=== PATIENT | male | born 1970 | race Caucasian/White ===

== ENCOUNTER 2019-08-27 07:55 | Day surgery (SDC) | payer OTHER ==
[~2019-08-27] VITALS: Ht 185.4 cm; Wt 82.7 kg
[2019-08-27 08:15] VITALS: BP 120/76
[2019-08-27] MEDS ORDERED: SODIUM CHLORIDE 0.9% 1,000 ML IV SCH ×2 (08:22→11:26)
[2019-08-27] MEDS ORDERED: SIMV10TA18 PO (08:26)
[2019-08-27] MEDS ORDERED: ASPIRIN 325 MG TABLET EC PO ONE (08:30)
[2019-08-27 08:47] LABS: ANION GAP 5 mmol/L (5-15); CALCIUM 8.3 mg/dL (8.5-10.1); CHLORIDE 107 mmol/L (98-107); CREATININE 0.95 mg/dL (0.7-1.3)
== END 2019-08-27 13:20 | disposition home or self-care (01) ==
LOC: CACL 07:55 → EDSTATUS 09-02 10:30
PROVIDERS: ATTEND Internal Medicine Cardiovascular Disease
DX: Z01.810 Encounter for preprocedural cardiovascular examination (principal); I35.1 Nonrheumatic aortic (valve) insufficiency; I71.2 Thoracic aortic aneurysm, without rupture; I48.0 Paroxysmal atrial fibrillation; E78.5 Hyperlipidemia, unspecified; Z79.899 Other long term (current) drug therapy
CPT/HCPCS: 36415; 80048; 93458; 99156; C1769; C1894; Q9967

== ENCOUNTER → 2019-08-28 | Outpatient (CLI) | payer OTHER ==
[~2019-08-28] MED LIST: ASPIRIN 325 MG TABLET EC ONE; OMNIPAQUE 350 MG/ML, 100ML BOTTLE ONE; SIMV10TA18 PO
== END | disposition home or self-care (01) ==
LOC: CFH 10:45
PROVIDERS: ATTEND Thoracic Surgery (Cardiothoracic Vascular Surgery)
DX: I71.2 Thoracic aortic aneurysm, without rupture (principal)
CPT/HCPCS: 71275; Q9967

== ENCOUNTER 2019-09-03 04:27 | Inpatient (IN) | payer OTHER ==
[2019-09-02 13:01] LABS: MICROSCOPIC NOT IND
[2019-09-02 13:06] LABS: BASOPHILS # (AUTO) 0.03 x10^3/uL (0-0.1); BASOPHILS % (AUTO) 0 % (0-1); EOSINOPHILS # (AUTO) 0.05 x10^3/uL (0-0.4); EOSINOPHILS % (AUTO) 1 % (1-7); LYMPHOCYTES # (AUTO) 1.16 x10^3/uL (1-3.4); LYMPHOCYTES % (AUTO) 16 % (22-44); MD NO; MEAN CORPUSCULAR HEMOGLOBIN 31.3 pg (27.5-34.5); MEAN CORPUSCULAR HGB CONC 33.7 g/dL (33.2-36.2); MEAN CORPUSCULAR VOLUME 92.8 fL (81-97); MEAN PLATELET VOLUME 6.9 fL (7.4-10.4); MONOCYTES # (AUTO) 0.54 x10^3/uL (0.2-0.8); MONOCYTES % (AUTO) 8 % (2-9); NEUTROPHILS # (AUTO) 5.42 x10^3/uL (1.8-6.8); NEUTROPHILS % (AUTO) 75 % (42-75); PLATELET COUNT 281 x10^3/uL (130-400); RED BLOOD COUNT 4.85 x10^6/uL (4.38-5.82)
[2019-09-02 13:16] LABS: ALANINE AMINOTRANSFERASE 32 U/L (12-78); ALBUMIN 3.9 g/dL (3.4-5.0); ANION GAP 3 mmol/L (5-15); CALCIUM 8.8 mg/dL (8.5-10.1); CHLORIDE 104 mmol/L (98-107); CREATININE 1.01 mg/dL (0.7-1.3)
[2019-09-02 13:18] LABS: ALKALINE PHOSPHATASE 44 U/L (45-117); BILIRUBIN,TOTAL 0.4 mg/dL (0.2-1.0); TOTAL PROTEIN 7.7 g/dL (6.4-8.2)
[2019-09-02 13:23] LABS: INTERNATIONAL NORMALIZED RATIO 0.99 (0.93-1.1); PROTHROMBIN TIME 10.5 Seconds (9.6-11.5)
[~2019-09-03] VITALS: Ht 185.4 cm; Wt 89.8 kg
[~2019-09-03 04:27] MED LIST changes: -ASPIRIN 325 MG TABLET EC ONE; -OMNIPAQUE 350 MG/ML, 100ML BOTTLE ONE
[2019-09-03 04:50] VITALS: BP_SYST 127; BP_SYST 143; BP_DIAS 74; BP_DIAS 78
[2019-09-03] MEDS ORDERED: CHLORHEXIDINE 15 ML UDC MM SCH (05:00)
[2019-09-03] MEDS ORDERED: INSULIN LISPRO 100 UNITS/ML, PEN SQ-INSULIN SCH (05:00)
[2019-09-03] MEDS ORDERED: DO NOT GIVE MC SCH (05:00)
[2019-09-03] MEDS: MUPIROCIN OINT 2%, 22GM TP SCH ×2 (05:07→21:00)
[2019-09-03] MEDS ORDERED: ALBUMIN HUMAN 5% 500 ML IV PRN (07:30)
[2019-09-03] MEDS ORDERED: POTASSIUM CHLORIDE 80 MEQ, SODIUM BICARBONATE 8.4% 10 MEQ, MAGNESIUM SULFATE 0.5 GM, LI... IV PRN (07:30)
[2019-09-03] MEDS ORDERED: EPINEPHRINE 5 MG in SODIUM CHLORIDE 0.9% 245 ML IV PRN ×2 (07:30→10:00)
[2019-09-03] MEDS ORDERED: MANNITOL PMX 20% 500 ML IVPB PRN (07:30)
[2019-09-03] MEDS ORDERED: DEXMEDETOMIDINE 200 MCG in SODIUM CHLORIDE 0.9% 48 ML IV PRN ×2 (07:30→09:54)
[2019-09-03] MEDS ORDERED: REGULAR INSULIN 100 UNITS in SODIUM CHLORIDE 0.9% 99 ML IV PRN ×2 (07:30→09:54)
[2019-09-03] MEDS ORDERED: CEFUROXIME 1.5 GM in SODIUM CHLORIDE 0.9% 50 ML IVPB PRN (07:30)
[2019-09-03] MEDS ORDERED: PHENYLEPHRINE 50 MG in SODIUM CHLORIDE 0.9% 245 ML IV PRN ×2 (07:30→09:54)
[2019-09-03] MEDS ORDERED: VANCOMYCIN 1,300 MG in SODIUM CHLORIDE 0.9% 250 ML IV PRN (07:30)
[2019-09-03] MEDS ORDERED: FENTANYL PF 250 MCG/5ML ONE ×4 (07:50→07:51)
[2019-09-03] MEDS ORDERED: MIDAZOLAM 10MG/2 ML ONE (07:50)
[2019-09-03] MEDS ORDERED: PROPOFOL 10 MG/ML, 20ML ONE (08:25)
[2019-09-03] MEDS: DOCUSATE 100 MG CAPSULE PO SCH ×2 (09:00→20:20)
[2019-09-03] MEDS ORDERED: DOBUTAMINE 250 MG in SODIUM CHLORIDE 0.9% 230 ML IV PRN (09:54)
[2019-09-03] MEDS ORDERED: NITROGLYCERIN/D5W PMX 250 ML IV PRN (09:54)
[2019-09-03] MEDS ORDERED: SODIUM CHLORIDE 0.9% 1,000 ML IV PRN (09:54)
[2019-09-03] MEDS ORDERED: VASOPRESSIN 20 UNIT in SODIUM CHLORIDE 0.9% 99 ML IV PRN (09:54)
[2019-09-03] MEDS ORDERED: ACETAMINOPHEN 325 MG TABLET PO PRN (10:00)
[2019-09-03] MEDS ORDERED: DEXTROSE 50%, 50ML SYRINGE IVPush PRN (10:00)
[2019-09-03] MEDS ORDERED: DEXTROSE 4 GM TAB.CHEW PO PRN (10:00)
[2019-09-03] MEDS ORDERED: ONDANSETRON 2MG/ML, 2ML IVPush PRN (10:00)
[2019-09-03] MEDS ORDERED: BISACODYL 10 MG SUPP PR PRN (10:00)
[2019-09-03] MEDS ORDERED: ACETAMINOPHEN 650 MG SUPP PR PRN (10:00)
[2019-09-03] MEDS ORDERED: HYDROcodone/APAP 10/325 MG TABLET PO PRN (10:00)
[2019-09-03] MEDS ORDERED: BISACODYL 5 MG EC TABLET PO PRN (10:00)
[2019-09-03] MEDS ORDERED: GLUCAGON 1 MG IM PRN (10:00)
[2019-09-03] MEDS ORDERED: PROCHLORPERAZINE 5 MG/ML, 2ML IVPush PRN (10:00)
[2019-09-03] MEDS ORDERED: MIDAZOLAM 1 MG/ML, 5ML IVPush PRN (10:00)
[2019-09-03] MEDS ORDERED: SODIUM BICARB 8.4%, 50ML SYRINGE IV PRN (10:00)
[2019-09-03] MEDS ORDERED: INSULIN REGULAR 100 UNITS/ML, 3ML VIAL IVPush PRN (10:00)
[2019-09-03] MEDS: INSULIN LISPRO 100 UNITS/ML, PEN SQ-INSULIN SCH ×4 (11:00→22:02)
[2019-09-03] MEDS ORDERED: ROCURONIUM 10MG/ML,5ML ONE ×2 (11:02)
[2019-09-03] MEDS ORDERED: AMINOCAPROIC ACID 250 MG/ML, 20ML ONE (11:02)
[2019-09-03] MEDS ORDERED: PROTAMINE SULFATE 10 MG/ML, 25ML ONE ×2 (11:02)
[2019-09-03] MEDS ORDERED: CALCIUM CHLORIDE 10%, 10ML SYR ONE (11:47)
[2019-09-03] MEDS: KSCALE TO 4.5 IV SCH ×2 (12:30→18:30)
[2019-09-03 12:33] LABS: GLUCOSE BY BLOOD GAS ANALYZER 161 mg/dL (70-110); HEMOGLOBIN BY BLOOD GAS ANALYZ 13.3 g/dL (14.0-18.0); POTASSIUM BY BLOOD GAS ANALYZR 4.2 mmol/L (3.6-5.5)
[2019-09-03] MEDS ORDERED: LIDOCAINE-MPF 2% ,5ML ONE (12:41)
[2019-09-03] MEDS ORDERED: SODIUM BICARBONATE 1 MEQ/ML, 50ML VIAL ONE (12:41)
[2019-09-03] MEDS ORDERED: methylPREDNISolone SOD SUCC 125 MG/2 ML ONE (12:41)
[2019-09-03] MEDS ORDERED: ALBUMIN HUMAN 25% 50 ML ONE (12:42)
[2019-09-03] MEDS ORDERED: HEPARIN 1,000 UNITS/ML, 30ML ONE (12:42)
[2019-09-03 12:44] LABS: INTERNATIONAL NORMALIZED RATIO 1.18 (0.93-1.1); PROTHROMBIN TIME 12.5 Seconds (9.6-11.5)
[2019-09-03] MEDS ORDERED: MIDAZOLAM 1 MG/ML, 2ML ONE (12:59)
[2019-09-03] MEDS: FENTANYL PF 100 MCG/2ML IVPush PRN ×2 (13:16→19:45)
[2019-09-03] MEDS: LACTATED RINGERS 1,000 ML IV PRN ×2 (13:31→13:41)
[2019-09-03] MEDS: SODIUM CHLORIDE FLUSH 10ML SYR IVF SCH ×3 (13:50→20:17)
[2019-09-03] MEDS: MAGNESIUM SULFATE 1 GM in SODIUM CHLORIDE 0.9% 100 ML IVPB SCH (14:08)
[2019-09-03] MEDS: OXYcodone IR 5MG TABLET PO PRN ×4 (16:23→23:57)
[2019-09-03] MEDS: CEFUROXIME 1.5 GM in SODIUM CHLORIDE 0.9% 50 ML IVPB SCH (18:32)
[2019-09-03] MEDS: VANCOMYCIN 1,300 MG in SODIUM CHLORIDE 0.9% 250 ML IVPB SCH (19:27)
[2019-09-03] MEDS: MUPIROCIN OINT 2%, 22GM NAS SCH (20:18)
[2019-09-04] MEDS: OXYcodone IR 5MG TABLET PO PRN ×3 (00:18→06:40)
[2019-09-04] MEDS: KSCALE TO 4.5 IV SCH ×2 (00:30→05:28)
[2019-09-04 04:00] VITALS: BP 122/62
[2019-09-04] MEDS: INSULIN LISPRO 100 UNITS/ML, PEN SQ-INSULIN SCH ×5 (04:06→20:12)
[2019-09-04 04:07] LABS: O2 FLOW ROOM AIR L/min
[2019-09-04 04:22] LABS: ALBUMIN 3.1 g/dL (3.4-5.0); ANION GAP 5 mmol/L (5-15); CALCIUM 8.1 mg/dL (8.5-10.1); CHLORIDE 108 mmol/L (98-107); CREATININE 0.81 mg/dL (0.7-1.3); INTERNATIONAL NORMALIZED RATIO 1.05 (0.93-1.1); PROTHROMBIN TIME 11.1 Seconds (9.6-11.5)
[2019-09-04 04:27] LABS: BASOPHILS # (AUTO) 0.02 x10^3/uL (0-0.1); BASOPHILS % (AUTO) 0 % (0-1); EOSINOPHILS # (AUTO) 0.01 x10^3/uL (0-0.4); EOSINOPHILS % (AUTO) 0 % (1-7); LYMPHOCYTES # (AUTO) 0.43 x10^3/uL (1-3.4); LYMPHOCYTES % (AUTO) 3 % (22-44); MD NO; MEAN CORPUSCULAR HEMOGLOBIN 30.9 pg (27.5-34.5); MEAN CORPUSCULAR HGB CONC 33.7 g/dL (33.2-36.2); MEAN CORPUSCULAR VOLUME 91.7 fL (81-97); MEAN PLATELET VOLUME 7.4 fL (7.4-10.4); MONOCYTES # (AUTO) 1.04 x10^3/uL (0.2-0.8); MONOCYTES % (AUTO) 7 % (2-9); NEUTROPHILS # (AUTO) 12.65 x10^3/uL (1.8-6.8); NEUTROPHILS % (AUTO) 89 % (42-75); PLATELET COUNT 241 x10^3/uL (130-400); RED BLOOD COUNT 4.27 x10^6/uL (4.38-5.82); RED CELL DISTRIBUTION WIDTH 13.8 % (9.4-14.8)
[2019-09-04] MEDS: CEFUROXIME 1.5 GM in SODIUM CHLORIDE 0.9% 50 ML IVPB SCH (06:45)
[2019-09-04] MEDS: METOPROLOL TARTRATE 25 MG TAB PO SCH ×2 (07:30→19:36)
[2019-09-04] MEDS: VANCOMYCIN 1,300 MG in SODIUM CHLORIDE 0.9% 250 ML IVPB SCH (08:30)
[2019-09-04] MEDS ORDERED: KETOROLAC 30 MG/1 ML ONE (08:36)
[2019-09-04] MEDS: FUROSEMIDE 20 MG/2 ML IV SCH (08:45)
[2019-09-04] MEDS: POTASSIUM CHLORIDE 10 MEQ TABLET.ER PO SCH (08:45)
[2019-09-04] MEDS: MUPIROCIN OINT 2%, 22GM NAS SCH ×2 (08:45→20:14)
[2019-09-04] MEDS: ASPIRIN 81 MG TABLET EC PO SCH (08:46)
[2019-09-04] MEDS: DOCUSATE 100 MG CAPSULE PO SCH ×2 (08:46→20:13)
[2019-09-04] MEDS: SODIUM CHLORIDE FLUSH 10ML SYR IVF SCH ×4 (08:47→20:14)
[2019-09-04] MEDS: KETOROLAC 30 MG/1 ML IVPush SCH ×3 (08:47→21:00)
[2019-09-04] MEDS: HYDROcodone/APAP 5/325 TABLET PO PRN ×3 (09:47→19:58)
[2019-09-04] MEDS: MAGNESIUM SULFATE 1 GM in SODIUM CHLORIDE 0.9% 100 ML IVPB SCH (11:54)
[2019-09-04] MEDS: CHLORHEXIDINE 15 ML UDC MM SCH (20:13)
[2019-09-05] MEDS: KETOROLAC 30 MG/1 ML IVPush SCH ×4 (01:37→20:22)
[2019-09-05] MEDS: HYDROcodone/APAP 5/325 TABLET PO PRN (04:45)
[2019-09-05 05:00] LABS: BASOPHILS # (AUTO) 0.02 x10^3/uL (0-0.1); BASOPHILS % (AUTO) 0 % (0-1); EOSINOPHILS % (AUTO) 0 % (1-7); LYMPHOCYTES # (AUTO) 0.98 x10^3/uL (1-3.4); LYMPHOCYTES % (AUTO) 8 % (22-44); MD NO; MEAN CORPUSCULAR HEMOGLOBIN 30.7 pg (27.5-34.5); MEAN CORPUSCULAR HGB CONC 33.1 g/dL (33.2-36.2); MEAN CORPUSCULAR VOLUME 92.7 fL (81-97); MEAN PLATELET VOLUME 7.7 fL (7.4-10.4); MONOCYTES # (AUTO) 0.99 x10^3/uL (0.2-0.8); MONOCYTES % (AUTO) 8 % (2-9); NEUTROPHILS # (AUTO) 10.59 x10^3/uL (1.8-6.8); NEUTROPHILS % (AUTO) 84 % (42-75); PLATELET COUNT 218 x10^3/uL (130-400); RED BLOOD COUNT 4.04 x10^6/uL (4.38-5.82); RED CELL DISTRIBUTION WIDTH 13.4 % (9.4-14.8)
[2019-09-05 05:08] LABS: ANION GAP 6 mmol/L (5-15); CALCIUM 8.3 mg/dL (8.5-10.1); CHLORIDE 105 mmol/L (98-107)
[2019-09-05 05:10] LABS: CREATININE 0.77 mg/dL (0.7-1.3)
[2019-09-05] MEDS: METOPROLOL TARTRATE 25 MG TAB PO SCH ×2 (05:31→17:57)
[2019-09-05 05:56] LABS: INTERNATIONAL NORMALIZED RATIO 0.97 (0.93-1.1); PROTHROMBIN TIME 10.3 Seconds (9.6-11.5)
[2019-09-05] MEDS ORDERED: AMIODARONE 150 MG in DEXTROSE 5% 100 ML IV ONE (06:30)
[2019-09-05] MEDS ORDERED: FILTER 0.22 MICRON IV PRN (06:30)
[2019-09-05] MEDS: INSULIN LISPRO 100 UNITS/ML, PEN SQ-INSULIN SCH ×4 (07:00→20:07)
[2019-09-05] MEDS: AMIODARONE 450 MG in DEXTROSE 5% 241 ML IV PRN ×2 (07:04→14:04)
[2019-09-05 07:20] VITALS: BP 110/66
[2019-09-05] MEDS: CHLORHEXIDINE 15 ML UDC MM SCH ×2 (08:27→20:22)
[2019-09-05] MEDS: POTASSIUM CHLORIDE 10 MEQ TABLET.ER PO SCH (08:28)
[2019-09-05] MEDS: ASPIRIN 81 MG TABLET EC PO SCH (08:28)
[2019-09-05] MEDS: DOCUSATE 100 MG CAPSULE PO SCH ×2 (08:28→20:22)
[2019-09-05] MEDS: FUROSEMIDE 20 MG/2 ML IV SCH (08:29)
[2019-09-05] MEDS: SODIUM CHLORIDE FLUSH 10ML SYR IVF SCH ×4 (08:32→20:28)
[2019-09-05] MEDS: MUPIROCIN OINT 2%, 22GM NAS SCH ×2 (08:32→20:22)
[2019-09-05 11:32] VITALS: BP 115/78
[2019-09-05] MEDS: MAGNESIUM SULFATE 1 GM in SODIUM CHLORIDE 0.9% 100 ML IVPB SCH (12:02)
[2019-09-05 12:17] VITALS: BP 125/86
[2019-09-05 20:18] VITALS: BP 131/85
[2019-09-06 01:22] VITALS: BP 130/84
[2019-09-06] MEDS: KETOROLAC 30 MG/1 ML IVPush SCH ×4 (03:47→21:35)
[2019-09-06 04:07] LABS: BASOPHILS # (AUTO) 0.06 x10^3/uL (0-0.1); BASOPHILS % (AUTO) 1 % (0-1); EOSINOPHILS # (AUTO) 0.03 x10^3/uL (0-0.4); EOSINOPHILS % (AUTO) 0 % (1-7); LYMPHOCYTES # (AUTO) 0.97 x10^3/uL (1-3.4); LYMPHOCYTES % (AUTO) 11 % (22-44); MD NO; MEAN CORPUSCULAR HEMOGLOBIN 31.1 pg (27.5-34.5); MEAN CORPUSCULAR HGB CONC 33.8 g/dL (33.2-36.2); MEAN CORPUSCULAR VOLUME 92.1 fL (81-97); MEAN PLATELET VOLUME 7.8 fL (7.4-10.4); MONOCYTES # (AUTO) 0.75 x10^3/uL (0.2-0.8); MONOCYTES % (AUTO) 9 % (2-9); NEUTROPHILS # (AUTO) 7.02 x10^3/uL (1.8-6.8); NEUTROPHILS % (AUTO) 80 % (42-75); PLATELET COUNT 192 x10^3/uL (130-400); RED CELL DISTRIBUTION WIDTH 13.5 % (9.4-14.8)
[2019-09-06 04:12] LABS: ANION GAP 4 mmol/L (5-15); CALCIUM 7.7 mg/dL (8.5-10.1); CHLORIDE 106 mmol/L (98-107); CREATININE 0.77 mg/dL (0.7-1.3)
[2019-09-06] MEDS: AMIODARONE 450 MG in DEXTROSE 5% 241 ML IV PRN (04:45)
[2019-09-06] MEDS: METOPROLOL TARTRATE 25 MG TAB PO SCH ×2 (05:49→18:38)
[2019-09-06 05:53] VITALS: BP 128/84
[2019-09-06] MEDS: INSULIN LISPRO 100 UNITS/ML, PEN SQ-INSULIN SCH ×2 (07:00→11:00)
[2019-09-06 07:31] VITALS: BP 132/88
[2019-09-06] MEDS: POTASSIUM CHLORIDE 10 MEQ TABLET.ER PO SCH (08:42)
[2019-09-06] MEDS: MUPIROCIN OINT 2%, 22GM NAS SCH (08:43)
[2019-09-06] MEDS: SODIUM CHLORIDE FLUSH 10ML SYR IVF SCH ×3 (08:43→21:35)
[2019-09-06] MEDS: ASPIRIN 81 MG TABLET EC PO SCH (08:43)
[2019-09-06] MEDS: FUROSEMIDE 20 MG/2 ML IV SCH (08:43)
[2019-09-06] MEDS: DOCUSATE 100 MG CAPSULE PO SCH ×2 (08:43→21:00)
[2019-09-06] MEDS: CHLORHEXIDINE 15 ML UDC MM SCH (08:44)
[2019-09-06] MEDS ORDERED: FUROSEMIDE 20 MG/2 ML IV ONE (14:00)
[2019-09-06] MEDS ORDERED: POTASSIUM CHLORIDE 20 MEQ TAB.ER.PRT PO ONE (14:00)
[2019-09-06 14:05] VITALS: BP 130/77
[2019-09-06 21:31] VITALS: BP 136/89
[2019-09-06] MEDS: AMIODARONE 200 MG TABLET PO SCH (21:34)
[2019-09-07 02:44] VITALS: BP 138/94
[2019-09-07] MEDS: KETOROLAC 30 MG/1 ML IVPush SCH ×2 (03:36→08:28)
[2019-09-07] MEDS: METOPROLOL TARTRATE 25 MG TAB PO SCH (06:26)
[2019-09-07 06:36] LABS: BASOPHILS # (AUTO) 0.07 x10^3/uL (0-0.1); BASOPHILS % (AUTO) 1 % (0-1); EOSINOPHILS # (AUTO) 0.05 x10^3/uL (0-0.4); EOSINOPHILS % (AUTO) 1 % (1-7); LYMPHOCYTES # (AUTO) 0.95 x10^3/uL (1-3.4); LYMPHOCYTES % (AUTO) 14 % (22-44); MD NO; MEAN CORPUSCULAR HGB CONC 33.9 g/dL (33.2-36.2); MEAN CORPUSCULAR VOLUME 91.5 fL (81-97); MEAN PLATELET VOLUME 7.7 fL (7.4-10.4); MONOCYTES # (AUTO) 0.58 x10^3/uL (0.2-0.8); MONOCYTES % (AUTO) 8 % (2-9); NEUTROPHILS % (AUTO) 77 % (42-75); PLATELET COUNT 233 x10^3/uL (130-400); RED BLOOD COUNT 3.79 x10^6/uL (4.38-5.82); RED CELL DISTRIBUTION WIDTH 13.2 % (9.4-14.8)
[2019-09-07 06:45] LABS: ANION GAP 5 mmol/L (5-15); CALCIUM 8.5 mg/dL (8.5-10.1); CHLORIDE 107 mmol/L (98-107); CREATININE 0.86 mg/dL (0.7-1.3)
[2019-09-07 07:16] VITALS: BP 138/92
[2019-09-07] MEDS: AMIODARONE 200 MG TABLET PO SCH (08:28)
[2019-09-07] MEDS: DOCUSATE 100 MG CAPSULE PO SCH (08:28)
[2019-09-07] MEDS: ASPIRIN 81 MG TABLET EC PO SCH (08:28)
[2019-09-07] MEDS: SODIUM CHLORIDE FLUSH 10ML SYR IVF SCH (08:29)
[2019-09-07] MEDS ORDERED: AMIO200T42 PO (08:57)
[2019-09-07] MEDS ORDERED: ASPI81TA45 PO (08:57)
[2019-09-07] MEDS ORDERED: HYDR-3237 PO (08:57)
[2019-09-07] MEDS ORDERED: POTA20TA6 PO (08:57)
[2019-09-07] MEDS ORDERED: FURO20TA3 PO (08:57)
[2019-09-07] MEDS ORDERED: METO25TA35 PO (08:57)
[2019-09-07] MEDS ORDERED: FUROSEMIDE 20 MG TABLET PO SCH (09:00)
[2019-09-07] MEDS ORDERED: POTASSIUM CHLORIDE 20 MEQ TAB.ER.PRT PO ONE (09:00)
== END 2019-09-07 11:07 | disposition home or self-care (01) | DRG 270 ==
LOC: 5SO 04:27 → CSU 11:13 → 5SO 09-05 11:28
PROVIDERS: ADMIT Thoracic Surgery (Cardiothoracic Vascular Surgery); ATTEND Thoracic Surgery (Cardiothoracic Vascular Surgery)
PROC: 04V00DZ Restriction of Abdominal Aorta with Intraluminal Device, Open Approach (ICD-10-PCS; 2019-09-03)
PROC: 02L70ZK Occlusion of Left Atrial Appendage, Open Approach (ICD-10-PCS; principal; 2019-09-03 08:00)
DX: I71.4 Abdominal aortic aneurysm, without rupture (principal); I46.9 Cardiac arrest, cause unspecified; I48.0 Paroxysmal atrial fibrillation; F10.10 Alcohol abuse, uncomplicated; I35.1 Nonrheumatic aortic (valve) insufficiency; R00.0 Tachycardia, unspecified
CPT/HCPCS: 36415; 36600; J3490; S0017; 71045; 71046; 80048; 80053; 81003; 82040; 82330; 82800; 82803; 82810; 82947; 82962; 83036; 83735; 84132; 84295; 85014; 85018; 85025; 85049; 85347; 85610; 85730; 86850; 86900; 86923; 87081; 88304; 88305; 93005; 93312; 93321; 93325; 93880; 94002; 94150; G0378; J0171; J0697; J1644; J1815; J1885; J2250; J2405; J2704; J2720; J3010; J3370; J3475; J3480; J7060; P9045; P9047; C1751; C1760; C1768; J0282; J1940; J2370; J2930; J7050; J7120; U0001

== ENCOUNTER → 2020-01-27 | Outpatient (CLI) | payer OTHER ==
[~2020-01-27] MED LIST changes: +AMIO200T42 PO; +ASPI81TA45 PO; +FURO20TA3 PO; +HYDR-3237 PO; +METO25TA35 PO; +POTA20TA6 PO
== END | disposition home or self-care (01) ==
LOC: CFH 07:59
PROVIDERS: ATTEND Physician Assistant Medical
DX: I35.1 Nonrheumatic aortic (valve) insufficiency (principal); E78.5 Hyperlipidemia, unspecified; I48.91 Unspecified atrial fibrillation
CPT/HCPCS: 93306